=== PATIENT | male | born 1990 | race Caucasian/White ===

== ENCOUNTER 2016-10-02 21:50 | Emergency (ER) ==
[2016-10-02] MEDS ORDERED: BOOSTRIX IM ONE (22:08)
--- NOTE | 2016-10-02 22:09 | ED.PDOC ---
General ED Provider: Dr. AKASH ARENAS Chief Complaint: Finger Laceration Stated Complaint: Pateint is a 26 year old male who comes to the Er with a laceration on the right index finger that occured when he was working with a telescopic light when it caught his right 2nd finger and took a slice of skin off. Has some bleeding which stopped with pressure. He is not up todate with his tetenus. Time Seen by Physician: 22:09 Mode of Arrival: Walk-In Information Source: Patient Exam Limitations: No limitations Nursing and Triage Documentation Reviewed and Agree: Yes Skin Complaint Exam - Laceration/Abrasion/Hand Complaint/Exam Location of Injury: Right, Digit #1 Mechanism of Injury: Laceration (shaving, measuring approx 1 cm x 0.6 cm.) Onset/Duration: just prior to arrival Symptoms Are: Still present Initial Severity: Severe Current Severity: Mild Aggravating: None Alleviating: None Associated Signs and Symptoms: Denies: Fever, Chills, Erythema, Numbness, Tingling Related History: Reports: Right hand dominant Hand Picture: 1 - shaved skin.measuring approx 1 cm x 0.6 cm. Differential Diagnoses: Laceration Review of Systems - Review Of Systems Constitutional: Reports: No symptoms Eyes: Reports: No symptoms Ears, Nose, Mouth, Throat: Reports: No symptoms Respiratory: Reports: No symptoms Cardiac: Reports: No symptoms GI: Reports: No symptoms : Reports: No symptoms Musculoskeletal: Reports: No symptoms Skin: Reports: Lesions (Laceration as in HPI) Neurological: Reports: No symptoms Endocrine: Reports: No symptoms Hematologic/Lymphatic: Reports: No symptoms All Other Systems: Reviewed and Negative Past Medical History - Past Medical History Previously Healthy: Yes Endocrine: Reports: None Cardiovascular: Reports: None Respiratory: Reports: Asthma (excercise induced ) Hematological: Reports: None Gastrointestinal: Reports: None Genitourinary: Reports: None Neuro/Psych: Reports: None Musculoskeletal: Reports: None Cancer: Reports: None - Surgical History General Surgical History: Reports: Tonsillectomy, Adenoidectomy - Family History Family History: Reports: None - Social History Smoking Status: Never smoker Hx Substance Use: No Alcohol Screening: Occasionally - Immunizations Tetanus Shot up to Date: No Influenza Vaccine within 12 Months: No Pneumococcal Vaccine up to Date: No Physical Exam - Physical Exam Appearance: Well-appearing, No pain distress, Well-nourished Eyes: RACIEL, EOMI, Conjunctiva clear ENT: Ears normal, Nose normal, Oropharynx normal Respiratory: Airway patent, Breath sounds clear, Breath sounds equal, Respirations nonlabored Cardiovascular: RRR, Pulses normal, No rub, No murmur GI/: Soft, Nontender, No masses, Bowel sounds normal, No Organomegaly Musculoskeletal: Normal strength, ROM intact, No edema, No calf tenderness Skin: Warm, Dry Neurological: Sensation intact, Motor intact, Reflexes intact, Cranial nerves intact, Alert, Oriented Psychiatric: Affect appropriate, Mood appropriate Critical Care Note - Critical Care Note Total Time (mins): 0 Course - Course Orders, Labs, Meds: Orders Category Date Time Status Splint [ED SPLINT APPLICATION] .ONCE EMERGENCY 10/02/16 22:31 Active Wound [ED WOUND CARE] .ONCE EMERGENCY 10/02/16 22:08 Active Diphth,Pertuss(Acell),Tet Vac [Boostrix] MEDS 10/02/16 22:08 Discontinued 0.5 ml IM .ONCE ONE Medications Discontinued Medications Generic Name Dose Route Start Last Admin Trade Name Freq PRN Reason Stop Dose Admin Diphtheria/Pertussis/Tetanus Vacc 0.5 ml 10/02/16 22:08 10/02/16 22:27 Boostrix IM 10/02/16 22:09 0.5 ml .ONCE ONE Administration Vital Signs: Temp Pulse Resp BP Pulse Ox 10/02/16 21:52 98.7 F 77 20 160/106 H 99 Departure - Departure Time of Disposition: 22:30 Disposition: HOME SELF-CARE Discharge Problem: Laceration of finger Instructions: Finger Laceration (ED) Condition: Fair Pt referred to PMD for follow-up: Yes Additional Instructions: Changes dressing twice a day Report signs of infection or return to the ER Keep clean. Use splint to protect the dressing. Allergies/Adverse Reactions: Allergies amoxicillin [From Augmentin] Adverse Reaction (Verified 10/02/16 22:04) cefaclor [From Ceclor] Adverse Reaction (Verified 10/02/16 22:04) clavulanic acid [From Augmentin] Adverse Reaction (Verified 10/02/16 22:04) codeine Adverse Reaction (Verified 10/02/16 22:04) Vomiting erythromycin base Adverse Reaction (Verified 10/02/16 22:05)
[2016-10-02 22:10] VITALS: TEMP 98.7; BMI 24.3
[2016-10-02 23:17] VITALS: BP 115/71
== END 2016-10-02 22:40 | disposition home or self-care (01) ==
LOC: ED 21:50
DX: S61.210A Laceration without foreign body of right index finger without damage to nail, initial encounter (principal); W45.8XXA Other foreign body or object entering through skin, initial encounter
CPT/HCPCS: 90471; 99283